=== PATIENT | female | born 1930 | race Caucasian/White ===

== ENCOUNTER 2016-10-28 13:01 | Inpatient (IN) ==
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
[2016-10-28 13:58] LABS: HEMATOCRIT 26.6 % (37.0-47.0); HEMOGLOBIN 8.7 g/dL (12.0-16.0); MCH 28.8 PG (27-31); MCHC 32.7 g/dL (33-37); MCV 88.1 FL (81-99); MPV 10.1 FL (7.4-10.4); RBC 3.02 XMIL (4.2-5.4)
[2016-10-28 14:18] LABS: CALCIUM 8.3 mg/dL (8.8-10.2); POTASSIUM 3.8 mmol/L (3.5-5.1)
--- NOTE | 2016-10-28 14:39 | Diag Imaging Result Doc PS360 ---
EXAM: HEAD W/O CONTRAST HISTORY: syncope TECHNIQUE: CT of the head without contrast COMMENT: There are patchy areas of lucency in the white matter of both hemispheres. This has not changed apparently since 09/15/2014. There are no acute bony abnormalities. There is congenital incomplete fusion of the posterior arch of C1. There is no evidence of bleed, mass effect, or abnormal extra-axial fluid collection. IMPRESSION: Chronic ischemic changes. No evidence of acute disease. The findings were discussed with Zach Self MD at 10/28/2016 2:36 PM. Electronically signed by Garrison Angel 10/28/2016 2:36 PM
[2016-10-28] MEDS ORDERED: MISC. PHARMACY COMMUNICATION SCH (14:54)
[2016-10-28] MEDS ORDERED: TYLENOL PO PRN (14:54)
[2016-10-28] MEDS ORDERED: LOVENOX SUBQ SCH (14:54)
[2016-10-28] MEDS ORDERED: ZOFRAN IV PRN (14:54)
[2016-10-28] MEDS: FLAGYL 500 MG/NS 500 MG/100 ML IVPB IV SCH ×2 (15:50→20:03)
[2016-10-28] MEDS: ZANTAC PO SCH ×2 (15:50→20:03)
[2016-10-28] MEDS: NS 1,000 ML IV SCH (15:50)
[2016-10-28 19:56] LABS: URINE CULTURE NEEDED? NO; URINE MICRO REVIEW NEEDED? NO; URINE SOURCE CLEAN CATCH
[2016-10-28 20:03] LABS: BILIRUBIN URINE NEGATIVE (NEGATIVE); BLOOD URINE NEGATIVE (NEGATIVE); COLOR YELLOW; GLUCOSE URINE NEGATIVE (NEGATIVE); LEUKOCYTES URINE NEGATIVE (NEGATIVE); NITRITE URINE NEGATIVE (NEGATIVE); PH URINE 6.5; PROTEIN URINE NEGATIVE (NEGATIVE); SP GRAVITY URINE 1.008; TURBIDITY URINE CLEAR (CLEAR); UROBILINOGEN URINE NORMAL (NORMAL)
[2016-10-28 20:04] LABS: UR EPITHELIAL CELLS <10 /HPF (<10); URINE BACTERIA NEGATIVE /HPF; URINE RBC <10 /HPF (<10); URINE WBC <10 /HPF (<10)
[2016-10-29] MEDS: NS 1,000 ML IV SCH ×4 (01:24→22:20)
[2016-10-29] MEDS: FLAGYL 500 MG/NS 500 MG/100 ML IVPB IV SCH ×5 (04:37→22:20)
[2016-10-29] MEDS: ASPIRIN PO SCH (08:44)
[2016-10-29] MEDS: CELEXA PO SCH (08:44)
[2016-10-29] MEDS: ZANTAC PO SCH (08:44)
[2016-10-29] MEDS ORDERED: BENADRYL PO ONE (09:21)
[2016-10-29 09:39] LABS: HEMATOCRIT 30.2 % (37.0-47.0); HEMOGLOBIN 9.7 g/dL (12.0-16.0)
[2016-10-29 10:05] LABS: CALCIUM 8.5 mg/dL (8.8-10.2); POTASSIUM 3.4 mmol/L (3.5-5.1)
--- NOTE | 2016-10-29 10:16 | PROGRESS NOTE ---
DATE: 10/29/2016 SUBJECTIVE: Ms. Valdes was admitted to [facility] with a syncopal episode. She has remained in normal sinus rhythm throughout her hospitalization. Her blood pressure has normalized and is trending upward with fluid resuscitation. Systolic blood pressures are ranging from 145- 162, whereas her diastolic blood pressures are ranging from 58-66. The orthostasis has resolved. She reports that the diarrhea is tapering off. Stool studies are still pending at this time. Her BUN and creatinine were 79 and 1.7. She was also anemic with a hemoglobin of 8, and hematocrit 26. She reports that she has been having increasing reflux and sour brash after meals and at night. She has not had any gross melena or hematochezia. PHYSICAL EXAMINATION: Vital Signs: Blood pressure 162/55, pulse 75, respirations 16. HEENT: Fundi with arteriolar wall thickening. Pupils equal, round, reactive to light. Extraocular eye movements intact. TMs without bullae. Neck: Supple. No masses, JVD or bruits. CV: Regular rate and rhythm. Lungs: Clear. Abdomen: Mild epigastric tenderness to deep palpation. ASSESSMENT AND PLAN: 1. Syncopal episode. I suspect that her syncopal episode was due to underlying volume depletion and orthostasis. We have rehydrated her with normal saline and her blood pressure has normalized. She is not orthostatic anymore. I am going to resume losartan 25 mg daily, but continue to hold diuretics. I also suspect that the diarrhea was contributing to her volume depletion. We will continue Flagyl 500 mg IV q.6 hours pending stool studies. If there is no evidence of infection and the diarrhea persists, I suspect that she would have some sort of functional diarrhea, and we could try treating her with . I would want to avoid Bentyl because of anticholinergic effects and worsening confusion, in the setting of mild cognitive impairment. 2. Acute renal failure. Her creatinine was 1.7. The BUN was 79. We will continue fluid resuscitation and recheck a BMP today. 3. Iron deficiency anemia. Her serum iron was 51. Given the increasing reflux symptoms and elevated BUN, I am concerned that she may have an upper gastrointestinal bleed. We will begin pantoprazole 40 mg IV daily and hold the Lovenox. We will consult gastroenterology medicine for consideration of an EGD. We will transfuse as needed to maintain a hemoglobin greater than 10, given her history of ischemic heart disease. I do suspect that she has an acute blood loss anemia, which is also contributing to the hypotension. cc: Sabrina Self MD
--- NOTE | 2016-10-29 10:19 | PROGRESS NOTE ---
DATE: 10/29/2016 SUBJECTIVE/OBJECTIVE Mrs. Valdes was admitted to [facility] as an outpatient with observation services for evaluation of a syncopal episode. Her renal function is deteriorating in spite of aggressive fluid resuscitation. Her BUN has gone from 40 to 79. She is anemic. She has an iron level of 51. She is having increasing reflux and sour brash after meals and at night. Her blood pressure has responded to fluid resuscitation. I suspect that her hypotension was due to volume losses from diarrhea as well as a suspected upper GI bleed. ASSESSMENT AND PLAN: Given her history of ischemic heart disease, I will type, crossmatch, and transfuse 1 unit of blood. I would like to see the hemoglobin in excess of 10. We will continue fluid resuscitation and follow her electrolytes and renal function. I will begin pantoprazole 40 mg IV daily and consult GI medicine for an upper GI evaluation. Given her clinical course and comorbid conditions, I anticipate she will be in the hospital for longer than 2 midnights, and I will therefore place her on inpatient status. I believe that attempting to send her home with active bleeding and worsening kidney function would dramatically increase the risk for adverse events such as sudden and further syncope. cc: Sabrina Self MD
[2016-10-29] MEDS: SODIUM CHLORIDE 0.9% INJ SCH (11:34)
[2016-10-29] MEDS: PROTONIX IV SCH (11:34)
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
[2016-10-29] MEDS ORDERED: NS 500 ML ONE (15:01)
[2016-10-30] MEDS: FLAGYL 500 MG/NS 500 MG/100 ML IVPB IV SCH ×4 (04:46→21:11)
[2016-10-30] MEDS ORDERED: KLOR-CON PO ONE (08:20)
[2016-10-30] MEDS ORDERED: TRANXENE PO PRN (08:21)
[2016-10-30] MEDS: SODIUM CHLORIDE 0.9% INJ SCH (08:43)
[2016-10-30] MEDS: CELEXA PO SCH (08:43)
[2016-10-30] MEDS: ASPIRIN PO SCH (08:43)
[2016-10-30] MEDS: PROTONIX IV SCH (08:43)
[2016-10-30] MEDS ORDERED: COZAAR PO SCH (09:00)
--- NOTE | 2016-10-30 09:00 | PROGRESS NOTE ---
DATE: 10/30/2016 SUBJECTIVE: Mrs. Valdes was admitted to [facility] with a syncopal episode. Her renal function has improved with fluid resuscitation. Her BUN and creatinine have dropped from 79 and 1.7 to 51 and 1.2. Her blood pressures are in the 140s and 150s, whereas her diastolic blood pressures are in the 50s and 60s on low-dose losartan. She is not having any more refractory reflux-type symptoms on the pantoprazole. Her hemoglobin and hematocrit were 9.7 and 30.2 after 1 unit of packed red blood cells. She remains in normal sinus rhythm. OBJECTIVE: Vital signs: Temperature 97.9 degrees, pulse 57, BP 144/52, respiratory rate 16. CV: Regular rate and rhythm. Lungs: Clear. Abdomen: Mild epigastric tenderness to deep palpation. No rebound or guarding. LABORATORY: Her hemoglobin and hematocrit were 9.7 and 30.2. A BMP demonstrated the following. Sodium 140, potassium 3.4, chloride 104, CO2 27, BUN 51, creatinine 1.2, and glucose 96. ASSESSMENT AND PLAN: 1. Acute renal failure. Her renal function is greatly improved with fluid resuscitation. I suspect that her renal dysfunction was a combination of an upper gastrointestinal bleed and volume depletion secondary to gastrointestinal losses. We will continue gentle rehydration and recheck a BMP in the morning. 2. Suspected upper gastrointestinal bleed with acute blood loss anemia. Her blood counts have improved greatly with the transfusion. We will continue IV pantoprazole in consult GI medicine for consideration of an EGD. 3. Diarrhea. She had 2 semi-formed stools yesterday. We will continue IV Flagyl pending stool studies. cc: Sabrina Self MD
[2016-10-30] MEDS: NS 1,000 ML IV SCH ×2 (12:38→23:00)
[2016-10-30 17:55] LABS: MANUAL DIFF NEEDED? NO
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
[2016-10-30 18:06] LABS: BASO% 0.4 % (0.0-0.8); EOS# 0.89 X1000 (0.0-0.7); EOS% 10.6 % (0.0-10.0); HEMATOCRIT 36.6 % (37.0-47.0); HEMOGLOBIN 12.2 g/dL (12.0-16.0); IMM GRAN# 0.03 X1000 (0.0-0.04); IMM GRAN% 0.4 % (0.0-0.5); LYMPH# 1.93 X1000 (1.2-3.4); LYMPH% 23.1 % (20.5-51.1); MCH 29.2 PG (27-31); MCHC 33.3 g/dL (33-37); MCV 87.6 FL (81-99); MONO# 0.75 X1000 (0.11-0.59); MPV 9.8 FL (7.4-10.4); NEUT% 56.5 % (42.2-75.2); PLT 279 X1000 (130-400); RBC 4.18 XMIL (4.2-5.4)
[2016-10-30 18:15] LABS: INR 1.04; PTT 25.8 Seconds (22.0-36.0)
[2016-10-30 18:32] LABS: CALCIUM 8.4 mg/dL (8.8-10.2); POTASSIUM 3.5 mmol/L (3.5-5.1)
[2016-10-30] MEDS: ROZEREM PO SCH (22:36)
[2016-10-31] MEDS: VALIUM PO PRN ×3 (00:53→21:28)
[2016-10-31] MEDS: FLAGYL 500 MG/NS 500 MG/100 ML IVPB IV SCH ×4 (04:30→21:28)
[2016-10-31] MEDS: NS 1,000 ML IV SCH ×4 (04:51→13:24)
[2016-10-31 05:47] LABS: AGAP 12; BUN 11 mg/dL (8-22); CALCIUM 8.3 mg/dL (8.8-10.2); CHLORIDE 103 mmol/L (98-107); COSMO 280; POTASSIUM 3.4 mmol/L (3.5-5.1); SODIUM 141 mmol/L (136-145); TCO2 26 mmol/L (25-35)
[2016-10-31 06:21] LABS: HEMATOCRIT 33.3 % (37.0-47.0); HEMOGLOBIN 12.8 g/dL (12.0-16.0)
[2016-10-31] MEDS: SODIUM CHLORIDE 0.9% INJ SCH (08:42)
[2016-10-31] MEDS: PROTONIX IV SCH (08:42)
[2016-10-31] MEDS ORDERED: ADENOCARD ONE (08:50)
[2016-10-31] MEDS ORDERED: ADENOCARD IV ONE (08:51)
--- NOTE | 2016-10-31 09:15 | EKG Report ---
Test Performed on : 10/31/2016 08:57:50 AM Test Reason : SVT Blood Pressure : / mmHG Vent. Rate : 136 BPM Atrial Rate : 258 BPM P-R Int : 000 ms QRS Dur : 074 ms QT Int : 260 ms P-R-T Axes : 000 018 210 degrees QTc Int : 391 ms Atrial fibrillation. with RVR Marked ST abnormality, possible inferolateral subendocardial injury Abnormal ECG When compared with ECG of 28-OCT-2016 13:03, Atrial fibrillation. has replaced Normal sinus rhythm. Vent. rate has increased BY [address] now depressed in Inferior leads ST now depressed in Lateral leads T wave inversion now evident in Anterolateral leads ST changes likely rate related Clinical Correlation advised Confirmed by Paresh Meng DO ([id number]) on 11/03/2016 7:11:05 AM
[2016-10-31] MEDS: ASPIRIN PO SCH (09:26)
[2016-10-31] MEDS: CELEXA PO SCH (09:26)
[2016-10-31] MEDS: COZAAR PO SCH (09:27)
[2016-10-31] MEDS: CARDIZEM 100 MG/NS 100 MG/100 ML IVPB IV SCH (09:35)
--- NOTE | 2016-10-31 10:36 | PROGRESS NOTE ---
DATE: 10/31/2016 SUBJECTIVE: Mrs. Valdes has a longstanding history of hypertension. Her blood pressure remains elevated. Systolic blood pressures are ranging from 176 to 186, whereas her diastolic blood pressures are ranging from 80 to 91. She was with complaint of palpitations. Telemetry noted a heart rate of 201. It appeared to be a narrow complex tachycardia. We gave her Adenocard, but it did not break the rhythm, and her heart rate dropped to the 80s, and then went immediately back to the 150s and 160s. Her EKG demonstrated atrial flutter with a rapid rate. She denies any reflux or sour brash, dysphagia, melena, or hematochezia on the pantoprazole. Her blood counts were stable this morning. Her hemoglobin was 12.8, and her hematocrit was 33.3. She was scheduled for an esophagogastroduodenoscopy today. OBJECTIVE: Vital Signs: Temperature 98.2 degrees, pulse 166, BP 176/80. CV: Regular rate and rhythm, but markedly tachycardic. Lungs: Distant breath sounds with increased period of expiration. Abdomen: Soft, nontender, with active bowel sounds. No hepatosplenomegaly. No abdominal bruits. ASSESSMENT AND PLAN: 1. Atrial flutter with rapid rate. We will place her on a Cardizem drip, and titrate to a heart rate less than 100. Once her heart rate has been controlled, we will switch her over to oral Cardizem. She had a normal echocardiogram and stress test in 07/2016. Potentially, if we cannot control her heart rate with medications, we could consider performing a transesophageal echocardiogram and cardioverting her. 2. Hypertension. Her blood pressure is too high. I will increase the losartan to 50 mg daily. 3. Acute blood loss anemia secondary to upper gastrointestinal bleed. We will continue to hold the Lovenox for fear of worsening bleeding, and will continue pantoprazole 40 mg intravenously daily. Given the development of the atrial flutter this morning, we will cancel her esophagogastroduodenoscopy. cc: Sabrina Self MD
[2016-10-31] MEDS ORDERED: CORDARONE IV ONE (12:17)
[2016-10-31] MEDS ORDERED: CORDARONE 360 MG/D5W 360 MG/200 ML IV.SOLN IV ONE (12:18)
--- NOTE | 2016-10-31 13:26 | PROGRESS NOTE ---
DATE: 10/31/2016 SUBJECTIVE: Patient states she is feeling a little better. She did have an episode of elevated heart rate this morning. She was found to have atrial flutter. She was given adenosine and started on a Cardizem drip. She had plans for an EGD today by Dr. Mckeon that was put on by Dr. Bella when she saw her as a consult over the weekend. That procedure has been canceled due to recent findings of atrial flutter with rapid rate. OBJECTIVE: Vital Signs: Temperature 97.9, pulse 128 respirations 20, blood pressure 130/73. LABORATORY: Hematology: Hemoglobin 12.8, hematocrit 33.3. Chemistry: Sodium 141, potassium 3.4, chloride 103, CO2 of 26, BUN 11, creatinine 0.8, glucose 94. ASSESSMENT AND PLAN: 1. New onset atrial flutter with rapid rate. She was given adenosine and has been started on a Cardizem drip. Cardiology has been consulted. 2. Anemia of questionable gastrointestinal bleed. An EGD was scheduled for today, but has been canceled. 3. Diarrhea. Will continue symptomatic treatment and supportive care. 4. We will continue to follow and further GI workup will be addressed once her cardiac status has been stabilized. We will continue to follow during her hospital course. I have discussed this case with Dr. Mckeon. Dictated by RAFAEL Dodson for Jayme Mckeon MD cc: RAFAEL Neville MD M. Neel Roberts, MD MTDD
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
[2016-10-31] MEDS ORDERED: CORDARONE 540 MG in D5W 289.2 ML IV ONE (18:17)
[2016-11-01] MEDS: ROZEREM PO SCH (00:22)
[2016-11-01] MEDS: NS 1,000 ML IV SCH ×3 (01:02→12:52)
[2016-11-01] MEDS: FLAGYL 500 MG/NS 500 MG/100 ML IVPB IV SCH ×4 (03:25→20:30)
[2016-11-01] MEDS: VALIUM PO PRN ×2 (05:22→20:13)
--- NOTE | 2016-11-01 05:24 | EKG Report ---
Test Performed on : 10/31/2016 3:53:44 PM Test Reason : Rhythm change Blood Pressure : / mmHG Vent. Rate : 061 BPM Atrial Rate : 061 BPM P-R Int : 144 ms QRS Dur : 066 ms QT Int : 384 ms P-R-T Axes : 025 010 194 degrees QTc Int : 386 ms Normal sinus rhythm. Nonspecific ST and T wave abnormality Abnormal ECG When compared with ECG of 31-OCT-2016 08:57, (Unconfirmed) Sinus rhythm. has replaced Atrial flutter. Vent. rate has decreased BY [address] no longer depressed in Inferior leads ST less depressed in Anterolateral leads ST elevation now present in V1-V2 T wave amplitude has decreased in V3 Confirmed by Paresh Meng DO ([id number]) on 11/05/2016 3:09:52 PM
[2016-11-01] MEDS: CARDIZEM 100 MG/NS 100 MG/100 ML IVPB IV SCH (05:39)
[2016-11-01] MEDS ORDERED: CATAPRES PO ONE (05:52)
[2016-11-01 06:07] LABS: AGAP 12; BUN 18 mg/dL (8-22); CALCIUM 8.4 mg/dL (8.8-10.2); CHLORIDE 105 mmol/L (98-107); COSMO 286; POTASSIUM 3.7 mmol/L (3.5-5.1); SODIUM 143 mmol/L (136-145); TCO2 26 mmol/L (25-35)
--- NOTE | 2016-11-01 07:32 | EKG Report ---
Test Performed on : 11/01/2016 06:56:06 AM Test Reason : afib/aflutter Blood Pressure : / mmHG Vent. Rate : 067 BPM Atrial Rate : 067 BPM P-R Int : 130 ms QRS Dur : 076 ms QT Int : 358 ms P-R-T Axes : 010 -05 236 degrees QTc Int : 378 ms Sinus rhythm. with premature supraventricular complexes. ST \T\ T wave abnormality, consider inferior ischemia Abnormal ECG When compared with ECG of 31-OCT-2016 15:53, (Unconfirmed) No significant change was found Confirmed by Paresh Meng DO ([id number]) on 11/05/2016 3:20:05 PM
[2016-11-01] MEDS: SODIUM CHLORIDE 0.9% INJ SCH (09:16)
[2016-11-01] MEDS: PROTONIX IV SCH (09:16)
[2016-11-01] MEDS: ASPIRIN PO SCH (09:25)
[2016-11-01] MEDS: CELEXA PO SCH (09:54)
[2016-11-01] MEDS: COZAAR PO SCH ×2 (09:54→20:14)
--- NOTE | 2016-11-01 13:27 | PROGRESS NOTE ---
DATE: 11/01/2016 SUBJECTIVE: Ms. Valdes was noted to be in atrial flutter with rapid rate. David started IV amiodarone. She converted back to normal sinus rhythm and remains in normal sinus rhythm. Her heart rate is ranging from 64 to 70. She denies any chest pain, palpitations, or anginal equivalents. A 2D echocardiogram with color Doppler and spectral flow Doppler studies was obtained earlier this morning, and the results are not back as of this dictation. Her blood pressure is still fluctuating. Systolic blood pressures are ranging from 162-190, whereas her diastolic blood pressures are ranging from 70-80. She reports that her diarrhea has resolved. She no longer has any reflux, sour brash, or epigastric discomfort on the pantoprazole. She has not had any further melena. Blood counts were stable at 12.8 and 33.3. OBJECTIVE: Vital Signs: Temperature 98.9 degrees, pulse 70, respirations 16, BP 170/79. CV: Regular rate and rhythm. Lungs: Clear. Abdomen: Soft, nontender, with active bowel sounds. No hepatosplenomegaly. No abdominal bruits. ASSESSMENT AND PLAN: 1. Paroxysmal atrial fibrillation and atrial flutter. She remains in normal sinus rhythm. She was loaded with amiodarone. The echocardiogram reports are pending at this time. Given the transient nature of the atrial flutter, she may not need long-term anticoagulation. 2. Acute renal failure secondary to volume depletion due to gastrointestinal losses. I will back down on the fluids to 50 mils per hour. Renal function has normalized. 3. Essential hypertension. Her blood pressure is still too high. I will increase the losartan to 50 mg twice daily. 4. Physical debility. We will increase activity. We will consult physical therapy. We will consult [facility] [employer] for consideration of rehabilitation placement. The family would like to consider [facility]. cc: Sabrina Self MD
--- NOTE | 2016-11-01 13:28 | PROGRESS NOTE ---
DATE: 11/01/2016 SUBJECTIVE: Patient states she is feeling a little better. Her Cardizem drip has been discontinued. Per echocardiogram, she is back to sinus rhythm. She denies any visible GI bleeding or black stools. OBJECTIVE: Vital signs: Temperature 98.9 degrees, pulse 70, respirations 16, blood pressure 170/79. LABORATORY: Hematology: White count 8.36, hemoglobin 12.8, hematocrit 33.3, MCV 87.6. Chemistry showed sodium 143, potassium 3.7, chloride 105, CO2 26, BUN 18, creatinine 0.8, glucose 91, iron 51, creatine kinase 186, troponin 0.016. Vitamin B12 716. Folate 19.2. ASSESSMENT AND PLAN: 1. Anemia, questionable GI bleed. Continue PPI. 2. Atrial flutter with rapid rate. She has been controlled after adenosine and Cardizem drip. Cardizem drip has been discontinued. EKG today showing normal sinus rhythm. 3. Hypertension. PLAN: Continue symptomatic treatment. Supportive care. Continue PPI. Since her rate is back to sinus rhythm, we will plan to proceed with an EGD for further evaluation of anemia and possible GI bleed. She may need to be started on anticoagulation for her recent onset of atrial flutter. She is being followed by Cardiology. Further plans to be made according to findings. I have discussed the EGD procedure with the patient along with benefits and risk and she does wish to proceed. I have discussed this case with Dr. Mckeon. Further plans will be made by him. Dictated by RAFAEL Dodson for Jayme Mckeon MD cc: RAFAEL Neville MD M. Neel Roberts, MD [facility]uan J
--- NOTE | 2016-11-01 16:13 | ECHO REPORT ---
ORDER DATE: 11/01/2016 MEASUREMENTS: Left ventricular end-diastolic diameter 4.1. Systolic diameter 2.5. Septal thickness 0.8. Posterior wall thickness 0.9. Left atrium 4.0. SUMMARY: 1. Adequate quality study. 2. Aortic valve is trileaflet and opens normally on 2-dimensional images. There is mild aortic regurgitation. Mitral, tricuspid, and pulmonic valves are without structural abnormality with mild mitral regurgitation, mild tricuspid regurgitation and mild pulmonic insufficiency. Estimated systolic PA pressure by Doppler is 25-30 mmHg. The aortic root is normal in size. 3. Normal left ventricular dimensions demonstrated. Estimated left ejection fraction appears to be at least 60%. No regional wall motion abnormality is evident. Doppler suggests grade 1 left ventricular diastolic dysfunction. Left atrium is borderline enlarged. Right atrium, right ventricle are normal in size with normal right ventricular systolic function. 4. No pericardial effusion. 5. Appearance of inferior vena cava suggests normal central venous pressure. CONCLUSIONS: 1. Mild aortic regurgitation. 2. Mild mitral regurgitation. 3. Mild tricuspid regurgitation with normal systolic PA pressure by Doppler. 4. Normal left ventricular systolic function without wall motion abnormality. 5. Grade 1 left ventricular diastolic dysfunction. 6. Borderline left atrial enlargement. cc: MD Anusha Abreu PA M. Neel Roberts, MD
--- NOTE | 2016-11-01 17:56 | PROGRESS NOTE ---
DATE: 11/01/2016 SUBJECTIVE: Patient continues in sinus rhythm. She has no dyspnea nor chest discomfort. OBJECTIVE: Vital Signs: Blood pressure 119/51, heart rate 62 and regular with ECG monitor showing sinus rhythm. Oxygen saturation 100% on room air. There is no significant jugular venous distention. Chest: Clear to auscultation. Cardiac Exam: Reveals a regular rate and rhythm without appreciable murmur or gallop. There is no evidence of peripheral edema. Echocardiography shows mild aortic regurgitation, mild mitral regurgitation. Mild tricuspid regurgitation and normal left ventricular ejection fraction without wall motion abnormality evident. IMPRESSION: 1. Transient atrial flutter. Patient back in sinus rhythm. 2. Recent syncope probably related to low blood pressure evident on presentation. 3. Anemia. Etiology not clear. 4. Atherosclerotic coronary disease with history of previous coronary bypass graft in 2000. Left ventricular ejection fraction normal. 5. Hypertension. 6. Chronic obstructive pulmonary disease. RECOMMENDATIONS: 1. Given apparent isolated episode of atrial flutter potentially provoked by low blood pressure, will discontinue amiodarone and observe. 2. Continue anti-platelet therapy. 3. We will consider further antiarrhythmic therapy in the event of recurrent atrial flutter but for now will observe clinically. cc: MD Sabrina Abreu MD
[2016-11-02] MEDS: ROZEREM PO SCH ×2 (02:54→22:13)
[2016-11-02] MEDS: FLAGYL 500 MG/NS 500 MG/100 ML IVPB IV SCH ×4 (02:56→20:05)
[2016-11-02] MEDS: VALIUM PO PRN ×3 (04:55→20:08)
[2016-11-02 05:42] LABS: HEMATOCRIT 31.5 % (37.0-47.0); HEMOGLOBIN 11.4 g/dL (12.0-16.0); MCH 35.7 PG (27-31); MCHC 36.2 g/dL (33-37); MCV 98.7 FL (81-99); MPV 9.7 FL (7.4-10.4); PLT 228 X1000 (130-400); RBC 3.19 XMIL (4.2-5.4)
[2016-11-02 06:11] LABS: AGAP 13; BUN 16 mg/dL (8-22); CALCIUM 7.6 mg/dL (8.8-10.2); CHLORIDE 108 mmol/L (98-107); COSMO 290; POTASSIUM 3.1 mmol/L (3.5-5.1); SODIUM 145 mmol/L (136-145); TCO2 24 mmol/L (25-35)
--- NOTE | 2016-11-02 07:30 | EKG Report ---
Test Performed on : 11/02/2016 06:54:32 AM Test Reason : afib/aflutter Blood Pressure : / mmHG Vent. Rate : 113 BPM Atrial Rate : 136 BPM P-R Int : 168 ms QRS Dur : 074 ms QT Int : 286 ms P-R-T Axes : 053 012 181 degrees QTc Int : 392 ms Sinus tachycardia. Marked ST abnormality, possible lateral subendocardial injury Abnormal ECG When compared with ECG of 02-NOV-2016 06:54, (Unconfirmed) ST depression in 1 and AVL - rate related ST now depressed in far lateral precordial leads V5-V6 Confirmed by Paresh Meng DO ([id number]) on 11/05/2016 3:33:07 PM
[2016-11-02] MEDS ORDERED: KLOR-CON PO ONE (07:55)
[2016-11-02] MEDS: COZAAR PO SCH ×2 (07:59→20:08)
[2016-11-02] MEDS: CELEXA PO SCH (08:03)
[2016-11-02] MEDS: COREG PO SCH ×2 (08:09→20:08)
[2016-11-02] MEDS: NITROGLYCERIN TOP SCH ×2 (08:09→16:39)
[2016-11-02] MEDS ORDERED: ATIVAN IV PRN (08:53)
[2016-11-02] MEDS ORDERED: CORDARONE IV ONE (09:03)
[2016-11-02] MEDS ORDERED: CORDARONE 360 MG/D5W 360 MG/200 ML IV.SOLN IV ONE (09:04)
--- NOTE | 2016-11-02 09:26 | PROGRESS NOTE ---
DATE: 11/02/2016 HISTORY: Ms. Valdes has a history of paroxysmal atrial flutter. She converted back into atrial flutter with a rapid rate of 142. She is with complaint of palpitations. She has had some intermittent chest discomfort and chest pressure but denies any radiation of pain to her neck or arm. EKG demonstrated ST-segment depression laterally. She had a normal [employer] GXT 2 months ago. Her blood pressure is still fluctuating. Systolic blood pressures have been in the 170s and 180s, whereas her diastolic blood pressures have been in the 80s and 90s. She denies any further reflux, sour brash, or epigastric discomfort. Blood counts have remained stable. Her hemoglobin and hematocrit were 11.4 and 31.5 today. PHYSICAL EXAMINATION: Vital Signs: Temperature 98.6 degrees, pulse 61, respirations 16, BP 190/90. HEENT: Fundi with arteriolar wall thickening. CV: Irregular. Lungs: Clear. Abdomen: Soft, nontender, with active bowel sounds. ASSESSMENT AND PLAN: 1. Paroxysmal atrial flutter. She has gone back into atrial flutter with rapid rate. I spoke to Dr. Addison Hernnadez. We are going to give her 150 mg of amiodarone intravenous and then place her on an amiodarone drip. We are hoping that with the use of an antiarrhythmic that we can convert her back to sinus rhythm. We understand that amiodarone can cause pulmonary fibrosis in the setting of underlying chronic obstructive pulmonary disease. She had a CHADS2 score of 2. She has a 4% risk of stroke annually. She has had a suspected upper gastrointestinal bleed. She is hemodynamically stable. Blood counts are stable. We talked about the risk of stroke in the face of atrial flutter with rapid rate and the need to anticoagulate. We also explained to her that the anticoagulation would increase the risk of bleeding. The family has chosen not to take anticoagulants at this time. Once her heart has been stabilized, I will do an upper GI series. If the upper GI series is within normal limits, then we will begin low- dose Eliquis. 2. Hypertension. Her blood pressure is too high. I am going to continue losartan 50 mg twice a day and add Coreg 6.25 mg twice a day. 3. Gastroesophageal reflux disease. I will continue pantoprazole 40 mg daily. 4. Hypokalemia. Her serum potassium was 3.1. I will give her KCl 60 mEq by mouth x1 dose. cc: Sabrina Self MD
[2016-11-02] MEDS: ASPIRIN PO SCH (09:45)
[2016-11-02] MEDS: NS 1,000 ML IV SCH (09:46)
[2016-11-02] MEDS: PROTONIX IV SCH (09:47)
[2016-11-02] MEDS: SODIUM CHLORIDE 0.9% INJ SCH (09:47)
--- NOTE | 2016-11-02 10:24 | EKG Report ---
Test Performed on : 11/02/2016 07:57:25 AM Test Reason : palpitations chest pain Blood Pressure : / mmHG Vent. Rate : 142 BPM Atrial Rate : 312 BPM P-R Int : 000 ms QRS Dur : 074 ms QT Int : 280 ms P-R-T Axes : 000 039 221 degrees QTc Int : 430 ms Atrial flutter. with variable AV block. Marked ST abnormality, possible inferolateral subendocardial injury Abnormal ECG When compared with ECG of 02-NOV-2016 06:54, (Unconfirmed) ST depression in precordial leads (likely rate related) Confirmed by Paresh Meng DO ([id number]) on 11/05/2016 3:35:06 PM
--- NOTE | 2016-11-02 11:51 | PROGRESS NOTE ---
DATE: 11/02/2016 SUBJECTIVE: The patient had recurrence of atrial flutter with rapid ventricular rate with associated tachy palpitations. Amiodarone was resumed and she is now back in sinus rhythm. She denies any chest discomfort or dyspnea. OBJECTIVE: Vital Signs: Blood pressure 189/58, heart rate 77 and regular. ECG monitor showing sinus rhythm. Oxygen saturation 97%. Chest: Clear to auscultation. Cardiac: Examination reveals a regular rate and rhythm without appreciable murmur or gallop. There is no evidence of peripheral edema. IMPRESSION: 1. Paroxysmal atrial flutter. Patient back in sinus rhythm with resumption of intravenous amiodarone. 2. Recent syncope probably related to low blood pressure evident on presentation. 3. Anemia. Evaluation in progress. 4. Atherosclerotic coronary disease with history of previous coronary bypass grafting in 2000. Left ventricular ejection fraction normal. 5. Hypertension. 6. Chronic obstructive pulmonary disease. RECOMMENDATIONS: 1. Continue amiodarone to suppress atrial flutter. We will transition to oral amiodarone. 2. Continue antiplatelet therapy for now. 3. Following conclusion of anemia workup, we will consider merits of anticoagulation. cc: MD Sabrina Abreu MD
[2016-11-02] MEDS: CORDARONE PO SCH ×2 (12:23→16:39)
[2016-11-02] MEDS ORDERED: CORDARONE 540 MG in D5W 289.2 ML IV ONE (15:00)
[2016-11-02] MEDS ORDERED: XYLOCAINE-MPF 2% ONE (15:31)
[2016-11-02] MEDS ORDERED: DIPRIVAN 1% ONE (15:31)
[2016-11-02] MEDS ORDERED: NORVASC PO ONE (18:48)
[2016-11-02] MEDS: CATAPRES PO PRN (19:12)
[2016-11-03] MEDS: FLAGYL 500 MG/NS 500 MG/100 ML IVPB IV SCH ×4 (02:05→20:40)
[2016-11-03] MEDS: NITROGLYCERIN TOP SCH ×3 (03:52→11:18)
[2016-11-03] MEDS: VALIUM PO PRN (04:16)
[2016-11-03] MEDS: PROTONIX PO SCH (07:05)
[2016-11-03] MEDS ORDERED: MISC. PHARMACY COMMUNICATION SCH (08:30)
--- NOTE | 2016-11-03 08:38 | PROGRESS NOTE ---
DATE: 11/03/2016 SUBJECTIVE: Ms. Valdes has a history of paroxysmal atrial fibrillation and atrial flutter. She was loaded with amiodarone yesterday 200 mg t.i.d. She remained in normal sinus rhythm throughout the night with a heart rate of 60 to 80. This morning, while walking to the bathroom and washing her face, she went back into atrial fibrillation with a heart rate in the 180s. She has subsequently converted back to sinus rhythm. Her blood pressure is trending down. Systolic blood pressures are ranging from 137-149, whereas her diastolic blood pressures are ranging from 57-82. We added amlodipine 5 mg daily. PHYSICAL EXAMINATION: Vital Signs: Temperature 98.8 degrees, pulse 91, respirations 18, BP 149/82. CV: Regular rate and rhythm. Lungs: Clear. Abdomen: Soft, nontender, with active bowel sounds. Extremities: Without edema. ASSESSMENT AND PLAN: 1. Paroxysmal atrial fibrillation and flutter. She is remaining in normal sinus rhythm for the most part but did have transient fibrillation this morning with activity. We will continue Coreg 6.25 mg twice a day and amiodarone 200 mg three times a day. I believe ultimately she will need ablation. We will continue aspirin [address] Hernandez and I both feel that it would be safer to avoid anticoagulants such as Coumadin and Eliquis because of the extensive bruising and the gastritis noted on EGD. 2. Hypertension. Her blood pressure is trending down. We will continue her current regimen of medications. 3. Gastroesophageal reflux disease. EGD demonstrated gastritis but no active bleeding. We will continue pantoprazole 40 mg daily. cc: Sabrina Self MD
[2016-11-03] MEDS: NORVASC PO SCH (09:11)
[2016-11-03] MEDS: CORDARONE PO SCH ×3 (09:11→16:30)
[2016-11-03] MEDS: COREG PO SCH ×2 (09:11→20:40)
[2016-11-03] MEDS: ASPIRIN PO SCH (09:11)
[2016-11-03] MEDS: CELEXA PO SCH (09:11)
[2016-11-03] MEDS: COZAAR PO SCH ×2 (09:11→20:40)
--- NOTE | 2016-11-03 10:58 | OPERATIVE NOTE ---
PROCEDURE DATE: 11/02/2016 PROCEDURE: 1. Esophagogastroduodenoscopy. 2. Biopsy. PREOPERATIVE DIAGNOSIS: Anemia. POSTOPERATIVE DIAGNOSIS: Erosive gastritis, stomach. Otherwise normal EGD. MEDICATIONS: Used MAC as per Anesthesia. SCOPE: [employer] GIF HQ-190. HISTORY: This 86-year-old, white female admitted to hospital with profound anemia. EGD was done for diagnostic and therapeutic purposes. CONSENT: Informed consent obtained from the patient. Procedure risks, benefits, alternatives were explained in layman's terms. She understood. All the pertinent questions answered. DESCRIPTION OF PROCEDURE: Patient was brought to the endoscopy unit and was premedicated as per Anesthesia. After adequate sedation, while she was lying in left lateral position, the gastroscope was introduced into the posterior pharynx and advanced under direct vision into the esophagus. Esophagus in its entire length appeared to be normal. There was a ring noted at the GE junction which was about 38 cm from the incisor, but it was widely patent. No varices were seen. Scope was then passed through the esophagus into the stomach. The stomach was examined in both straight and retroflexed view, which revealed normal cardia, fundus, and body. There were multiple erosions seen in the antrum but no distinct ulcer or stigmata of recent bleed seen. Biopsy from the area was obtained using cold biopsy forceps. The scope was then passed through the normal pylorus, into the duodenal bulb, and then 2nd part duodenum. Both appeared to be normal. The scope was then removed. Patient tolerated the procedure with no complications noted. Patient was then transferred to the recovery area in a stable condition. IMPRESSION: Erosive gastritis, antrum, biopsied. Otherwise, normal EGD. RECOMMENDATION: Continue proton pump inhibitor. I will switch her from IV to p.o. Recheck hemoglobin and hematocrit, transfuse if necessary. In the meantime, follow up the biopsy report. Depending on the findings, further plans made. Once discharged she will be followed up at the office. Case was discussed with her daughter and Dr. Robb Self. cc: MD Sabrina Fofana MD
[2016-11-03] MEDS: PATIENT'S OWN MED PO PRN ×2 (11:10→19:42)
[2016-11-03 13:40] LABS: HEMATOCRIT 32.8 % (37.0-47.0)
[2016-11-03 13:50] LABS: AGAP 13; BUN 14 mg/dL (8-22); CALCIUM 7.9 mg/dL (8.8-10.2); CHLORIDE 101 mmol/L (98-107); COSMO 273; SODIUM 135 mmol/L (136-145); TCO2 21 mmol/L (25-35)
--- NOTE | 2016-11-03 16:38 | PROGRESS NOTE ---
DATE: 11/03/2016 SUBJECTIVE: The patient had recurrent atrial flutter this morning after she got up and went into the bathroom. She spontaneously converted back to sinus rhythm. She had some palpitations with this. Upper GI endoscopy has indicated gastritis and treatment with proton pump inhibitor has been recommended. She is presently without chest discomfort or dyspnea. OBJECTIVE: Vital Signs: Blood pressure 136/54, heart rate 72 and regular. Neck: There is no significant jugular venous distention. Chest: Clear to auscultation. Cardiac Exam: Reveals a regular rate and rhythm without appreciable murmur or gallop. There is no evidence of peripheral edema. IMPRESSION: 1. Paroxysmal atrial flutter. 2. Recent syncope probably related to low blood pressure evident on presentation. 3. Anemia. Gastritis demonstrated on upper GI endoscopy. 4. Atherosclerotic coronary disease with history of previous coronary bypass grafting 2000. Left ventricular ejection fraction normal. 5. Hypertension. 6. Chronic obstructive pulmonary disease. RECOMMENDATIONS: 1. Will increase amiodarone while she is still in the hospital but continue to give orally. 2. Continue antiplatelet therapy for now. cc: MD Sabrina Abreu MD
[2016-11-03] MEDS: NS 1,000 ML IV SCH (19:42)
[2016-11-03] MEDS: ROZEREM PO SCH (20:41)
[2016-11-04] MEDS: ROZEREM PO SCH ×2 (01:44→22:02)
[2016-11-04] MEDS: CATAPRES PO PRN (01:44)
[2016-11-04] MEDS: FLAGYL 500 MG/NS 500 MG/100 ML IVPB IV SCH (01:54)
[2016-11-04] MEDS: PROTONIX PO SCH (06:05)
[2016-11-04] MEDS: COREG PO SCH ×2 (08:54→22:02)
[2016-11-04] MEDS: CELEXA PO SCH (08:54)
[2016-11-04] MEDS: ASPIRIN PO SCH (08:55)
[2016-11-04] MEDS: CORDARONE PO SCH ×3 (08:55→22:02)
[2016-11-04] MEDS: COZAAR PO SCH ×2 (08:55→22:02)
[2016-11-04] MEDS: NORVASC PO SCH (08:55)
[2016-11-04] MEDS: LEVAQUIN 750 MG/D5W 750 MG/150 ML IVPB IV SCH (08:55)
[2016-11-04] MEDS: PATIENT'S OWN MED PO PRN ×3 (08:56→22:02)
--- NOTE | 2016-11-04 11:38 | PROGRESS NOTE ---
DATE: 11/04/2016 SUBJECTIVE: Patient states she is feeling a little better. She is complaining of right arm soreness related to a previous IV. EGD done on 11/02/2016 showed erosive gastritis in the stomach. Otherwise normal EGD. OBJECTIVE: Vital signs: Temperature 98.5 degrees, pulse 73, respirations 18, blood pressure 124/58. Generally: Patient is awake, alert, no acute distress. HEENT: Normocephalic, atraumatic. Pupils equal, round, reactive to light. Respiratory: Lung sounds essentially clear bilaterally. Cardiovascular: Regular rate and rhythm. She has had recurrent atrial flutter and she is being followed by a chip drier. Extremities: Right arm redness and edema from her IV which was restarted. LABORATORY: Hematology: White count 10.66, hemoglobin 11.0, hematocrit 32.8, MCV 98.7. Chemistry: Sodium 135, potassium 4.0, chloride 101, CO2 21, BUN 14, creatinine 0.8, glucose 148. EGD showed erosive gastritis. Otherwise normal EGD. We are waiting on pathology result which is pending. ASSESSMENT AND PLAN: 1. Anemia. 2. New onset atrial flutter. Following with Cardiology. 3. GERD with erosive gastritis noted on EGD. We will continue symptomatic treatment and supportive care. Continue PPI. Waiting biopsy results. Continue to follow with Cardiology and follow with Dr. Self. Recommend to see her in the office in 2-3 weeks after discharge. The patient states she may go to [facility] rehab. We can see her in the office after she gets out of rehab or sooner if needed. We will watch for pathology results and further plans will be made as needed. Dictated by RAFAEL Dodson for Jayme Mckeon MD cc: RAFAEL Neville MD M. Neel Roberts, MD [facility]
--- NOTE | 2016-11-04 12:53 | PROGRESS NOTE ---
DATE: 11/04/2016 SUBJECTIVE: Ms. Valdes is complaining of some discomfort in her right arm. It has continued to be erythematous and edematous. She has no complaints of heart racing. OBJECTIVE/PHYSICAL EXAM: Vital signs: She is afebrile. Heart rate is in the 70s. Blood pressure 109/49. Her I's and O's for the course of the hospitalization have been positive 2.2 L. General: In no acute distress. Cardiovascular: She sounds to be in a regular rate and rhythm. She has no murmurs present. She has trace to minimal lower extremity edema noted. Her telemetry currently showed that she was in sinus rhythm. Chest: Exam was relatively clear to auscultation bilaterally. She has no increased work of breathing. Abdomen: Soft and nontender. TELEMETRY: Over the preceding 24 hours, she does not appear to have any telemetry recorded events of atrial flutter. Her last one appeared to have been on the 16. LABORATORY DATA: Shows a hematocrit of 32.8--that was yesterday. She has no recent chemistry labs from today. ASSESSMENT: 1. Paroxysmal atrial flutter. 2. Episodic syncope possibly related to hypotension present on arrival. 3. Anemia. 4. History of coronary disease. 5. Hypertension. 6. Chronic obstructive pulmonary disease. PLAN: The patient is continuing on oral amiodarone. We will consider a decrease in the oral rate in the morning. I will check a venous ultrasound of the right upper extremity to ensure no evidence of DVT. She is currently on antibiotics. cc: MD Sabrina Engel MD
[2016-11-04] MEDS ORDERED: VANCOMYCIN IV PER PHARMACY MISC SCH (13:15)
--- NOTE | 2016-11-04 13:32 | PROGRESS NOTE ---
DATE: 11/04/2016 Mrs. Valdes has a history of paroxysmal atrial flutter. Dr. Hernandez had increased the amiodarone to 400 mg t.i.d. and we have been titrating upward on the beta-blockers. She has remained in normal sinus rhythm. Her heart rate has ranged from 64-75. She denies any chest pain, palpitations, or anginal equivalents. She does have a longstanding history of hypertension. Her blood pressure is well controlled. Systolic blood pressures are ranging from 110-134 whereas her diastolic blood pressures are ranging from 49-77. She is with complaint of increasing erythema and swelling and induration in the right arm. She has had no fever or chills.Vital signs: Temperature 97.7 degrees, pulse 82, respirations 18, BP 109/49. CV: Regular rate and rhythm. Lungs: Clear. Abdomen: Soft, nontender, with active bowel sounds. Extremities: There is increasing redness, tenderness and swelling of the right forearm. ASSESSMENT AND PLAN: 1. Paroxysmal atrial flutter. She remains in normal sinus rhythm. Heart rate is well controlled. Hopefully, we will be able to taper down on the oral amiodarone given her underlying history of COPD. Potentially she would be a candidate for ablation therapy as an outpatient. 2. Hypertension. Her blood pressure is stable. We will continue her current regimen of medications. 3. Cellulitis of the right upper extremity. I will treat her with Levaquin 750 mg IV daily and vancomycin pending cultures. cc: Sabrina Self MD
[2016-11-04] MEDS: VANCOMYCIN 1 GM/NS 1 GM/250 ML IVPB IV SCH (15:36)
[2016-11-04] MEDS: NS 1,000 ML IV SCH (15:37)
[2016-11-05] MEDS ORDERED: LASIX IV ONE (01:55)
[2016-11-05] MEDS ORDERED: ATROVENT NEB INH ONE (01:57)
[2016-11-05 05:18] LABS: MANUAL DIFF NEEDED? NO
[2016-11-05 05:20] LABS: BASO% 0.3 % (0.0-0.8); EOS# 0.72 X1000 (0.0-0.7); EOS% 6.6 % (0.0-10.0); HEMATOCRIT 30.9 % (37.0-47.0); HEMOGLOBIN 10.2 g/dL (12.0-16.0); IMM GRAN# 0.04 X1000 (0.0-0.04); IMM GRAN% 0.4 % (0.0-0.5); LYMPH# 1.13 X1000 (1.2-3.4); LYMPH% 10.4 % (20.5-51.1); MCV 87.8 FL (81-99); MONO# 1.01 X1000 (0.11-0.59); MONO% 9.3 % (1.7-9.3); MPV 9.8 FL (7.4-10.4); PLT 233 X1000 (130-400); RBC 3.52 XMIL (4.2-5.4)
[2016-11-05 05:50] LABS: CALCIUM 7.6 mg/dL (8.8-10.2); POTASSIUM 3.6 mmol/L (3.5-5.1)
[2016-11-05] MEDS: PROTONIX PO SCH (06:01)
[2016-11-05] MEDS: ATROVENT NEB INH SCH ×3 (07:41→23:50)
[2016-11-05] MEDS: ASPIRIN PO SCH (08:33)
[2016-11-05] MEDS: COZAAR PO SCH ×2 (08:33→20:43)
[2016-11-05] MEDS: LEVAQUIN 750 MG/D5W 750 MG/150 ML IVPB IV SCH (08:33)
[2016-11-05] MEDS: NORVASC PO SCH (08:33)
[2016-11-05] MEDS: CELEXA PO SCH (08:33)
[2016-11-05] MEDS: CORDARONE PO SCH (08:33)
[2016-11-05] MEDS: COREG PO SCH ×2 (08:34→20:43)
--- NOTE | 2016-11-05 08:41 | PROGRESS NOTE ---
DATE: 11/05/2016 SUBJECTIVE: Ms. Valdes remains in sinus rhythm. Her heart rate has ranged from 69-75. She denies any chest pain, palpitations, or anginal equivalents. She did have increasing shortness of breath last night and had crackles on examination. We stopped her fluids and bolused her with Lasix. She is breathing comfortably this morning. Her O2 saturations are in the range of 98 on 2 L of O2. She has diminished swelling and erythema in the right arm. Noninvasive venous studies demonstrate superficial thrombophlebitis of the basilic vein. OBJECTIVE: Vital signs: Temperature 98.3 degrees pulse 69, respirations 24, BP 134/56. CV: Regular rate and rhythm. Lungs: Distant breath sounds with increased period of expiration. Abdomen: Soft, nontender, with active bowel sounds. Extremities: There is less erythema, and swelling of the right forearm. LABORATORY DATA: Various laboratory studies were obtained. A CBC demonstrated white count 10.9, hemoglobin 10.2, hematocrit 30.9 and a platelet count of 233,000. Electrolytes demonstrate the following: Sodium 136, potassium 3.6, chloride 101, CO2 23, BUN 19, creatinine 0.9, and glucose 92. ASSESSMENT AND PLAN: 1. Paroxysmal atrial fibrillation and atrial flutter. She remains in normal sinus rhythm. We will continue Coreg for rate control and oral amiodarone. We will most likely reduce the dosage of amiodarone to 200 mg twice daily at the time of discharge. 2. Superficial thrombophlebitis of the right forearm with associated cellulitis. We will continue warm compresses to the arm every 4 hours and continue intravenous Levaquin. 3. Gastritis. We will continue anti-reflux precautions and Dexilant 60 mg daily. cc: Sabrina Self MD
[2016-11-05] MEDS: PATIENT'S OWN MED PO PRN (10:42)
--- NOTE | 2016-11-05 10:54 | PROGRESS NOTE ---
DATE: 11/05/2016 SUBJECTIVE: Ms. Valdes reports her right arm is feeling better. It certainly looks more or less erythematous. OBJECTIVE: Vital signs: On physical examination, afebrile. Heart rate is 69, blood pressure 134/56. General: No acute distress. Cardiovascular: She sounds to be in a regular rate and rhythm. She has no lower extremity edema. Chest: Exam sounds relatively clear. Abdomen: Soft, nontender. Extremities: Exam shows a right upper extremity that is much less erythematous from the elbow down. There is still some mild edema, but overall improved. PERTINENT DATA: White count 10.9, her hematocrit is 30.9, platelet count is 233. Sodium 136, potassium is 3.6, BUN 19, creatinine 0.9. ASSESSMENT: 1. Superficial venous thrombosis. 2. Atrial fibrillation. 3. History of coronary artery disease. 4. Chronic obstructive pulmonary disease. PLAN: We will decrease the oral amiodarone down to 200 mg daily. Venous ultrasound results reviewed and seemed to show a superficial thrombosis on the right. She is currently on antibiotics and overall it looks much better. Dr. Hernandez will likely be back to follow the patient on Monday. cc: MD Sabrina Engel MD
--- NOTE | 2016-11-05 20:36 | Extremity Venous Study ---
PROCEDURE NAME: Venous U/S Right Arm - 11/04/2016 REQUESTING PHYSICIAN: Dr. Claus Meng. RADIO SURVEY WORKER: Dc. INDICATIONS: Red edema and pain right upper extremity. PROCEDURE: Right upper extremity venous duplex and color flow imaging. EQUIPMENT: [employer] Vivid E9 ultrasound system with 9 LD transducer. FINDINGS: Images of the right upper extremity venous system comparison shot to the left subclavian vein were obtained in both sagittal and transverse planes. Doppler was used to evaluate veins for spontaneity, phasicity, respiratory excursion and digital augmentation. RESULTS: There appears to be a superficial venous thrombosis noted in the right basilic vein but otherwise normal study. INTERPRETATION: Superficial venous thrombosis in the right basilic vein. cc: MD Claus Stoddard MD M. Neel Roberts, MD
[2016-11-05] MEDS: ROZEREM PO SCH (22:00)
[2016-11-06] MEDS: VANCOMYCIN 1 GM/NS 1 GM/250 ML IVPB IV SCH (03:00)
[2016-11-06] MEDS: PROTONIX PO SCH (06:20)
[2016-11-06] MEDS: ATROVENT NEB INH SCH ×3 (07:39→22:35)
[2016-11-06] MEDS: NORVASC PO SCH (08:28)
[2016-11-06] MEDS: COREG PO SCH ×2 (08:28→21:07)
[2016-11-06] MEDS: ASPIRIN PO SCH (08:28)
[2016-11-06] MEDS: COZAAR PO SCH ×2 (08:28→21:07)
[2016-11-06] MEDS: LEVAQUIN 750 MG/D5W 750 MG/150 ML IVPB IV SCH (08:28)
[2016-11-06] MEDS: CELEXA PO SCH (08:28)
[2016-11-06] MEDS: CORDARONE PO SCH (08:28)
[2016-11-06] MEDS: PATIENT'S OWN MED PO PRN ×2 (08:29→21:08)
--- NOTE | 2016-11-06 09:40 | PROGRESS NOTE ---
DATE: 11/06/2016 SUBJECTIVE: Mrs. Valdes remains in normal sinus rhythm. Heart rate is ranging from 60 to 80. She denies any chest pain, palpitations, or anginal equivalents. She has diminished swelling and erythema in the right forearm. OBJECTIVE: Vital signs: She is afebrile, pulse 78, respirations 18, BP 164/55. CV: Regular rate and rhythm. Lungs: Distant breath sounds with increased period of expiration. Abdomen: Soft, nontender, with active bowel sounds. Extremities: Decreased erythema and induration in the right forearm. ASSESSMENT AND PLAN: 1. Paroxysmal atrial fibrillation, atrial flutter. She remains in normal sinus rhythm. Her heart rate is well controlled on Coreg and amiodarone. 2. Superficial thrombophlebitis of the right forearm. We will continue IV Levaquin, warm compresses to the arm, and I am going to add low-dose Naprosyn for 5-7 days. 3. Physical debility. We will continue physical therapy and hopefully will be able to transfer her to rehab in the morning. cc: Sabrina Self MD
[2016-11-06] MEDS: NAPROSYN PO SCH ×2 (11:17→21:53)
[2016-11-06] MEDS: ROZEREM PO SCH (21:53)
[2016-11-07] MEDS: PROTONIX PO SCH (06:01)
[2016-11-07] MEDS: ATROVENT NEB INH SCH ×3 (08:15→23:49)
[2016-11-07] MEDS: COZAAR PO SCH ×2 (08:46→20:25)
[2016-11-07] MEDS: CORDARONE PO SCH (08:46)
[2016-11-07] MEDS: ASPIRIN PO SCH (08:46)
[2016-11-07] MEDS: NORVASC PO SCH (08:46)
[2016-11-07] MEDS: NAPROSYN PO SCH ×2 (08:46→20:29)
[2016-11-07] MEDS: CELEXA PO SCH (08:46)
[2016-11-07] MEDS: COREG PO SCH ×2 (08:46→20:25)
[2016-11-07 11:37] LABS: RANDOM VANCOMYCIN 8.6 ug/mL (5.0-80)
[2016-11-07] MEDS ORDERED: VANCOMYCIN 1 GM/NS 1 GM/250 ML IVPB IV SCH (14:00)
[2016-11-07] MEDS: PATIENT'S OWN MED PO PRN ×2 (15:11→20:26)
[2016-11-08] MEDS: PROTONIX PO SCH (06:05)
[2016-11-08] MEDS: ATROVENT NEB INH SCH ×2 (07:24→15:19)
[2016-11-08] MEDS: CELEXA PO SCH (08:44)
[2016-11-08] MEDS: COREG PO SCH (08:44)
[2016-11-08] MEDS: CORDARONE PO SCH (08:44)
[2016-11-08] MEDS: NAPROSYN PO SCH (08:44)
[2016-11-08] MEDS: NORVASC PO SCH (08:44)
[2016-11-08] MEDS: ASPIRIN PO SCH (08:44)
[2016-11-08] MEDS ORDERED: LEVAQUIN PO SCH (09:00)
[2016-11-08] MEDS ORDERED: COZAAR PO SCH (09:00)
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
[2016-11-08] MEDS: PATIENT'S OWN MED PO PRN (13:07)
--- NOTE | 2016-11-08 13:51 | Diag Imaging Result Doc PS360 ---
EXAM: CHEST-2 VIEWS HISTORY: Rehab placement TECHNIQUE: COMPARISON: 10/13/2015 FINDINGS: There are sternal wires and surgical clips. Heart is enlarged. Small pleural effusions. The vessels are not distended. No pneumonia. Minimal basilar atelectasis. There are long-standing arthritic changes to each shoulder IMPRESSION: Stable cardiomegaly. Tiny pleural effusions. Electronically signed by Jose L Powell 11/08/2016 1:49 PM
[2016-11-08 17:12] VITALS: BP 133/64
== END 2016-11-08 17:35 ==
LOC: ED 13:01 → 3S 13:01
PROVIDERS: ADMIT Internal Medicine; ATTEND Internal Medicine